=== PATIENT | male | born 1960 | race Two or more races ===

== ENCOUNTER 2021-10-24 10:37 | Emergency (ER) | payer MEDICAID ==
[~2021-10-24] VITALS: Ht 142.2 cm; Wt 87.2 kg
[2021-10-24 11:33] LABS: Basophils # (auto) 0 10 ^3/uL (0-0.2); Basophils % (auto) 0.7 % (0.0-2.0); Eosinophils # (auto) 0 10 ^3/uL (0-0.8); Eosinophils % (auto) 0.6 % (0.0-7.0); Hematocrit 46.1 % (41.0-53.0); Hemoglobin 15.1 g/dL (13.5-17.5); Lymphocytes # (auto) 1.7 10 ^3/uL (0.4-5.4); Lymphocytes % (auto) 28.7 % (10.0-50.0); Mean Corpuscular Hemoglobin 31.7 pg (28.0-32.0); Mean Corpuscular Hgb Conc. 32.7 g/dL (32.0-36.0); Mean Corpuscular Volume 97.1 fL (80.0-100.0); Monocytes # (auto) 0.5 10 ^3/uL (0-1.3); Monocytes % (auto) 8.8 % (0.0-12.0); Neutrophils # (auto) 3.7 10 ^3/uL (1.6-8.6); Neutrophils % (auto) 61.2 % (37.0-80.0); Nucleated Red Blood Cells % 0.1 %; Red Blood Cells 4.75 10^6/uL (4.5-5.90); Red Cell Distribution Width 14.2 % (11.8-14.3)
[2021-10-24 11:49] LABS: Albumin 3.3 g/dL (3.4-5.0); Calcium 8.7 mg/dL (8.5-10.1); Potassium 3.6 mmol/L (3.5-5.1)
[2021-10-24 11:52] LABS: BUN/Creatinine Ratio 18.6; Bilirubin, Total 0.4 mg/dL (0.2-1.0); Total Protein 7.5 g/dL (6.4-8.2)
[2021-10-24] MEDS ORDERED: METH4PAK PO (13:02)
[2021-10-24] MEDS ORDERED: ASPirin 81 mg TAB PO ONE (13:15)
[2021-10-24 13:45] VITALS: BP 138/82
== END 2021-10-24 13:49 | disposition home or self-care (01) ==
LOC: ER 10:37
DX: G51.0 Bell's palsy (principal); E11.22 Type 2 diabetes mellitus with diabetic chronic kidney disease; I12.9 Hypertensive chronic kidney disease with stage 1 through stage 4 chronic kidney disease, or unspecified chronic kidney disease; N18.9 Chronic kidney disease, unspecified
CPT/HCPCS: 36415; 70450; 80053; 85025

== ENCOUNTER 2022-04-02 09:21 | Emergency (ER) | payer MEDICAID ==
[~2022-04-02] VITALS: Ht 157.5 cm; Wt 86.6 kg
[~2022-04-02 09:21] MED LIST: METH4PAK PO
[2022-04-02 09:57] VITALS: BP 151/93
[2022-04-02] MEDS ORDERED: IPRATROPIUM BROM 0.5 MG/2.5ML INH SOL NEB ONE (10:00)
[2022-04-02] MEDS ORDERED: ALBUTEROL SULF 2.5 MG/0.5ML(0.5%) NEB SOLN NEB ONE (10:00)
[2022-04-02] MEDS ORDERED: IBUP600T27 PO (10:51)
[2022-04-02] MEDS ORDERED: ACET-1079 PO (10:51)
[2022-04-02] MEDS ORDERED: LORA-483 GT (10:51)
[2022-04-02] MEDS ORDERED: BENZ100C19 PO (10:51)
== END 2022-04-02 10:51 | disposition home or self-care (01) ==
LOC: ER 09:21
DX: J06.9 Acute upper respiratory infection, unspecified (principal); B97.89 Other viral agents as the cause of diseases classified elsewhere; I12.9 Hypertensive chronic kidney disease with stage 1 through stage 4 chronic kidney disease, or unspecified chronic kidney disease; E11.22 Type 2 diabetes mellitus with diabetic chronic kidney disease; N18.9 Chronic kidney disease, unspecified; Z79.899 Other long term (current) drug therapy; Z20.822 Contact with and (suspected) exposure to COVID-19
CPT/HCPCS: 36415; 71046; 87426; 87804; 94640; 99284; J7644

== ENCOUNTER 2022-06-12 09:36 | Emergency (ER) | payer MEDICAID ==
[~2022-06-12] VITALS: Ht 160 cm; Wt 86.0 kg
[~2022-06-12 09:36] MED LIST changes: +ACET-1079 PO; +BENZ100C19 PO; +IBUP600T27 PO; +LORA-483 GT
[2022-06-12] MEDS ORDERED: LISI-716 PO (10:57)
[2022-06-12] MEDS ORDERED: cloNIDine HCL 0.1 MG TAB PO ONE ×2 (11:00→11:15)
[2022-06-12 11:18] LABS: Basophils # (auto) 0 10 ^3/uL (0-0.2); Basophils % (auto) 0.6 % (0.0-2.0); Eosinophils # (auto) 0.1 10 ^3/uL (0-0.8); Eosinophils % (auto) 0.9 % (0.0-7.0); Hematocrit 47.1 % (41.0-53.0); Hemoglobin 16.2 g/dL (13.5-17.5); Lymphocytes # (auto) 1.9 10 ^3/uL (0.4-5.4); Lymphocytes % (auto) 28.4 % (10.0-50.0); Mean Corpuscular Hemoglobin 33.2 pg (28.0-32.0); Mean Corpuscular Hgb Conc. 34.3 g/dL (32.0-36.0); Mean Corpuscular Volume 96.8 fL (80.0-100.0); Monocytes # (auto) 0.7 10 ^3/uL (0-1.3); Monocytes % (auto) 10.3 % (0.0-12.0); Neutrophils % (auto) 59.8 % (37.0-80.0); Nucleated Red Blood Cells % 0.2 %; Red Blood Cells 4.86 10^6/uL (4.5-5.90); Red Cell Distribution Width 13.7 % (11.8-14.3); White Blood Cell 6.6 10^3/uL (4.4-10.8)
[2022-06-12 12:01] LABS: Albumin 3.4 g/dL (3.4-5.0); Calcium 8.8 mg/dL (8.5-10.1)
[2022-06-12 12:05] LABS: BUN/Creatinine Ratio 16.1 (10.0-20.0)
[2022-06-12 12:09] LABS: Total Protein 7.8 g/dL (6.4-8.2)
[2022-06-12 12:15] LABS: Bilirubin, Total 0.4 mg/dL (0.2-1.0)
[2022-06-12 12:35] VITALS: BP 164/80
== END 2022-06-12 12:41 | disposition home or self-care (01) ==
LOC: ER 09:36
DX: I16.0 Hypertensive urgency (principal); E11.22 Type 2 diabetes mellitus with diabetic chronic kidney disease; I12.9 Hypertensive chronic kidney disease with stage 1 through stage 4 chronic kidney disease, or unspecified chronic kidney disease; N18.9 Chronic kidney disease, unspecified; Z88.6 Allergy status to analgesic agent
CPT/HCPCS: 36415; 80053; 84484; 85025

== ENCOUNTER 2024-12-29 07:25 | Emergency (ER) | payer MEDICAID ==
[~2024-12-29] VITALS: Ht 165.1 cm; Wt 85.0 kg
[~2024-12-29 07:25] MED LIST changes: +IBUP-1454 PO; -IBUP600T27 PO; +LISI10TA34 PO
--- NOTE | 2024-12-29 08:23 | ED.PDOC ---
Musculoskeletal HPI Comments 64-year-old male who is Croatian-speaking presents to the ER with a prior MHx of chronic knee pain in the chief complaint of knee pain. The patient reports on having generalized left knee pain which has flared up 15 days ago. The patient is currently taking [id number] medications with a minimal improvement. Denies any in his symptoms at this time. Able to bear weight on the leg Denies trauma to the knee or recent fall Denies skin color changes around the knee Denies masses around the knee Denies popping/locking/giving out of the knee Denies fever chills night sweats nausea vomiting Denies previous surgeries to the knee nor significant injury Chief Complaint: Lower Extremity Time Seen by MD: 08:20 Primary Care Provider: NONE Reviewed Notes: Nurses Notes, Medications, Allergies Allergies: Coded Allergies: NO KNOWN ALLERGIES (Unverified , 11/20/18) Home Meds Active Scripts Acetaminophen (Acetaminophen) 500 Mg Tab, 500 MG PO Q6HP PRN for 10 Days, #40 TAB 0 Refills Prov:ANKUR CABRERA FOOT WORKER 12/29/24 Meloxicam (Meloxicam) 7.5 Mg Tab, 1 TAB PO BID for 10 Days, #20 TAB 0 Refills Prov:ANKUR CABRERA FOOT WORKER 12/29/24 Lisinopril (Lisinopril) 10 Mg Tab, 10 MG PO DAILY for 10 Days, #10 TAB Prov:KIM ESTEVEZ MD 06/12/22 Ibuprofen (Ibuprofen) 600 Mg Tab, 1 TAB PO TID, #30 TAB Prov:MARYURI STEEN PAC 04/02/22 Acetaminophen (Tylenol) 325 Mg Tb, 650 MG PO Q6HPRN PRN, #40 TAB Prov:MARYURI STEEN PAC 04/02/22 Benzonatate (Tessalon Perles) 100 Mg Cap, 1 CAP PO TID, #21 CAP Prov:MARYURI STEEN PAC 04/02/22 Loratadine (CLARITIN TABLET) 10 Mg Tb, 10 MG GT DAILY for 15 Days, #15 TAB Prov:MARYURI STEEN PAC 04/02/22 Methylprednisolone (Medrol Dosepak) 4 Mg Nura, 4 MG PO UD, #21 TAB UAD Prov:DANIEL QUINN MD 10/24/21 Information Source: Patient Mode of Arrival: Ambulatory Location: Left Extremity Location: Knee Timing: Days Prehospital treatment: None Severity: Moderate Able to Move Extremity: Yes Bear Weight: Limited Pain: Moderate Hand Dominance: Right Mechanism: Unknown Circumstances: Unknown Onset of Symptoms: Spontaneous Symptoms: Swelling, Pain DVT Risk Factors: NONE Associated signs and symptoms: Knee pain Past Medical History PAST MEDICAL HISTORY: CKF, DM Surgical History: Hernia Repair Family History Family History: Reviewed,noncontributory to illness, Unknown Social History Smoker: Non-Smoker Alcohol: Occasionally Drugs: Denies Drug Use Lives In: Home Constitutional: denies: chills, diaphoresis, fatigue, fever, malaise, sweats, weakness, others EENTM: denies: blurred vision, double vision, ear bleeding, ear discharge, ear drainage, ear pain, ear ringing, eye pain, eye redness, hearing loss, mouth pain, mouth swelling, nasal discharge, nose bleeding, nose congestion, nose pain, photophobia, tearing, throat pain, throat swelling, voice changes, others Respiratory: denies: cough, hemoptysis, orthopnea, SOB at rest, shortness of breath, SOB with excertion, stridor, wheezing, others Cardiovascular: denies: chest pain, dizzy spells, diaphoresis, Dyspnea on exertion, edema, irregular heart beat, left arm pain, lightheadedness, palpitations, PND, syncope, others Gastrointestinal: denies: abdomen distended, abdominal pain, blood streaked bowels, constipated, diarrhea, dysphagia, difficulty swallowing, hematemesis, melena, nausea, poor appetite, poor fluid intake, rectal bleeding, rectal pain, vomiting, others Genitourinary: denies: burning, dysuria, flank pain, frequency, hematuria, incontinence, penile discharge, penile sore, pain, testicle pain, testicle swelling, urgency, others Neurological: denies: dizziness, fainting, headache, left sided numbness, left sided weakness, numbness, paresthesia, pre-existing deficit, right sided numbness, right sided weakness, seizure, speech problems, tingling, tremors, weakness, others Musculoskeletal: reports: others (Left knee pain); denies: back pain, gout, joint pain, joint swelling, muscle pain, muscle stiffness, neck pain Integumetry: denies: bruises, change in color, change in hair/nails, dryness, laceration, lesions, lumps, rash, wounds, others Allergic/Immunocompromised: denies: Difficulty Healing, Frequent Infections, Hives, Itching, others Hematologic/Lymphatic: denies: anemia, blood clots, easy bleeding, easy b ruising, swollen glands, others Endocrine: denies: excessive hunger, excessive sweating, excessive thirst, excessive urination, flushing, intolerance to cold, intolerance to heat, unexplained weight gain, unexplained weight loss, others Psychiatric: denies: anxiety, bipolar disorder, depression, hopeless, panic disorder, schizophrenia, sleepless, suicidal, others All Other Systems: Reviewed and Negative Physical Exam Exam Comments Mild swelling patella, no erythema, pain with flexion General Appearance: No Apparent Distress, Normal HEENT: Normal ENT Inspection, Pharynx Normal, TMs Normal Neck: Full Range of Motion, Non-Tender, Normal, Normal Inspection Respiratory: Chest Non-Tender, Lungs Clear, No Accessory Muscle Use, No Respiratory Distress, Normal Breath Sounds Cardiovascular: No Edema, No JVD, No Murmur, No Gallop, Normal Peripheral Pulses, Regular Rate/Rhythm Breast Exam: Deferred Gastrointestinal: No Organomegaly, Non Tender, No Pulsatile Mass, Normal Bowel Sounds, Soft Genitalia: Deferred Pelvic: Deferred Rectal: Deferred Extremities: No calf tenderness, Normal capillary refill, Normal inspection, Normal range of motion, Non-tender, No pedal edema Musculoskeletal : Apperance: Normal Neurologic: Alert, graphic design intern II-XII nml as Tested, No Motor Deficits, Normal Affect, Normal Mood, No Sensory Deficits Cerebellar Function: Normal Reflexes: Normal Skin: Dry, Normal Color, Warm Lymphatic: No Adenopathy Was a procedure done? Was a procedure done?: No Differential Diagnosis EXT Differential Diagnosis: Sprain, Arthritis X-Ray, Labs, Meds, VS Vital Signs Date Time Temp Pulse Resp B/P (MAP) Pulse Ox O2 Delivery O2 Flow Rate FiO2 12/29/24 09:55 59 18 98 Room Air 12/29/24 09:55 97.9 59 19 178/83 (114) 98 97.9 12/29/24 07:28 98.3 77 18 192/82 96 98.3 Lab Test 12/29/24 08:50 Range/Units White Blood Count 5.8 4.4-10.8 10^3/uL Red Blood Count 4.77 4.5-5.90 10^6/uL Hemoglobin 16.0 13.5-17.5 g/dL Hematocrit 46.7 41.0-53.0 % Mean Corpuscular Volume 97.9 80.0-100.0 fL Mean Corpuscular Hemoglobin 33.5 H 28.0-32.0 pg Mean Corpuscular Hemoglobin Concent 34.2 32.0-36.0 g/dL Red Cell Distribution Width 13.3 11.8-14.3 % Platelet Count 193 140-450 10^3/uL Mean Platelet Volume 7.9 6.9-10.8 fL Neutrophils (%) (Auto) 60.7 37.0-80.0 % Lymphocytes (%) (Auto) 26.1 10.0-50.0 % Monocytes (%) (Auto) 11.6 0.0-12.0 % Eosinophils (%) (Auto) 0.7 0.0-7.0 % Basophils (%) (Auto) 0.9 0.0-2.0 % Neutrophils # (Auto) 3.6 1.6-8.6 10 ^3/uL Lymphocytes # (Auto) 1.5 0.4-5.4 10 ^3/uL Monocytes # (Auto) 0.7 0-1.3 10 ^3/uL Eosinophils # (Auto) 0 0-0.8 10 ^3/uL Basophils # (Auto) 0.1 0-0.2 10 ^3/uL Nucleated Red Blood Cells 0.1 % Sodium Level 139 136-145 mmol/L Potassium Level 4.1 3.5-5.1 mmol/L Chloride Level 106 98-107 mmol/L Carbon Dioxide Level 23 20-31 mmol/L Anion Gap 10 5-15 Blood Urea Nitrogen 11 9-23 mg/dL Creatinine 0.82 0.700-1.30 mg/dL Glomerular Filtration Rate Calc 98 >90 mL/min BUN/Creatinine Ratio 13.4 10.0-20.0 Serum Glucose 109 H 74-106 mg/dL Calcium Level 8.9 8.7-10.4 mg/dL PATIENT: ADI SEYMOURGIOACCT: [id number]: [id number] : 1960 LOC: ER ROOM / BED: / AGE / SEX: 64 / M ADM STATUS: REG ER SERVICE 7 ORDERING PHYSICIAN: ANKUR CABRERA NP PROCEDURE(s): LKNE3 - L KNEE 3V XRAY REASON: Pain x 4 wks ORDER NUMBER(s): [id number], ACCESSION NUMBER(s): [id number] CLINICAL INDICATION: Pain x 4 wks TECHNIQUE: XY L KNEE 3V XRAY Comparison: None FINDINGS/IMPRESSION: : There is no evidence of acute fracture or dislocation. Soft tissues are unremarkable. Moderate tricompartmental degenerative change. This is most advanced at the patellofemoral joints base. Small joint effusion. ATED BY: MJ ADKINS MD DICTATED DATE/TIME: 12/29/24853 SIGNED BY: MJ ADKINS MD SIGNED DATE/TIME: 12/29/24853 CC: X-Ray, Labs, Meds, VS Comment 64-year-old male who is Croatian-speaking presents to the ER with a prior MHx of chronic knee pain in the chief complaint of knee pain. Patient arrives alert and oriented, ABC's intact, afebrile, vital signs stable, saturating well in room air Peripheral IV insertion+ labs were ordered. CBC was ordered to exclude anemia, blood loss, or infection. BMP was ordered to exclude electrolyte abnormalities, renal failure, dehydration, hyperglycemi Diagnostic imaging ordered by me and results interpreted by radiology : Left knee x-ray Prescribed NSAIDs for the management of acute knee pain. Take ibuprofen p.o. 600 mg every 8 hours with food as needed for pain Recommend light walking under the sun for 30 minutes a day Avoiding running jogging high-impact activities Stretch as tolerated Ice 3x/day for 5 minutes Wear knee brace for stability as needed, elevate leg swelling aggravated Additional MDM Review of External, Non-ED records: External records reviewed. Discussion with independent historian (EMS, family) history obtained from the patient/parents (if applicable) at bedside Chronic conditions affecting care: None Social determinants of health affecting care: None Consideration of admission (observation or admission): I considered escalation of care to admission for this patient, however given the reassuring workup, the patient is safe for outpatient management. Discussion with the Radiology: No Tests considered but not performed: Prescription medication considered but not given: 12 lead EKG interpretation: Time of 1ST Reevaluation: 08:50 Reevaluation 1ST: Improved Patient Education/Counseling: Diagnosis, Treatment, Prognosis Family Education/Counseling: No Family Present Departure 1 Departure Time of Disposition: 10:14 Impression: Primary Impression: Tricompartment osteoarthritis of left knee Disposition: 01 HOME / SELF CARE / HOMELESS Condition: Stable e-Prescriptions Acetaminophen (Acetaminophen) 500 Mg Tab 500 MG PO Q6HP PRN for 10 Days, #40 TAB 0 Refills Prov: ANKUR CABRERA NP 12/29/24 Meloxicam (Meloxicam) 7.5 Mg Tab 1 TAB PO BID for 10 Days, #20 TAB 0 Refills Prov: ANKUR CABRERA NP 12/29/24 Critical Care Note Critical Care Time?: No Stability Stability form required: No Heart Score Heart Score: Heart Score Response (Comments) Value History N/A 0 EKG N/A 0 Age N/A 0 Risk Factors N/A 0 Troponin N/A 0 Total 0 I personally scribed for ANKUR CABRERA NP ([email or web address]) on 12/29/24 at 08:23. Electronically submitted by Armando Vogel ([email or web address]). ANKUR CABRERA NP Dec 29, 2024 08:23
--- NOTE | 2024-12-29 08:56 | DVH ---
CLINICAL INDICATION: Pain x 4 wks TECHNIQUE: XY L KNEE 3V XRAY Comparison: None FINDINGS/IMPRESSION: : There is no evidence of acute fracture or dislocation. Soft tissues are unremarkable. Moderate tricompartmental degenerative change. This is most advanced at the patellofemoral joints base. Small joint effusion.
[2024-12-29 09:04] LABS: Hematocrit 46.7 % (41.0-53.0); Hemoglobin 16.0 g/dL (13.5-17.5); Mean Corpuscular Hemoglobin 33.5 pg (28.0-32.0); Mean Corpuscular Volume 97.9 fL (80.0-100.0); Nucleated Red Blood Cells % 0.1 %
[2024-12-29 09:17] LABS: Chloride 106 mmol/L (98-107); Potassium 4.1 mmol/L (3.5-5.1); Sodium 139 mmol/L (136-145)
[2024-12-29 09:18] LABS: Anion Gap 10 (5-15); Calcium 8.9 mg/dL (8.7-10.4); Carbon Dioxide 23 mmol/L (20-31)
[2024-12-29 09:23] LABS: BUN/Creatinine Ratio 13.4 (10.0-20.0); Blood Urea Nitrogen 11 mg/dL (9-23); Glucose 109 mg/dL (74-106)
[2024-12-29 09:55] VITALS: BP 178/83; PULSE 59; RESP 18; TEMP 97.9; O2SAT 98
[2024-12-29] MEDS ORDERED: ACET500T58 PO (10:16)
[2024-12-29] MEDS ORDERED: MELO7.5T7 PO (10:16)
== END 2024-12-29 10:59 | disposition home or self-care (01) ==
LOC: ER 07:25
DX: M17.12 Unilateral primary osteoarthritis, left knee (principal); E11.22 Type 2 diabetes mellitus with diabetic chronic kidney disease; N18.9 Chronic kidney disease, unspecified; Z79.899 Other long term (current) drug therapy; Z98.890 Other specified postprocedural states
CPT/HCPCS: 36415; 73562; 80048; 85025